=== PATIENT | male | born 1985 | race Caucasian/White ===

== ENCOUNTER 2021-07-03 21:33 | Emergency (ER) | payer OTHER ==
[~2021-07-03] VITALS: Ht 185.4 cm; Wt 90.7 kg
[2021-07-03 22:35] LABS: URINE BILIRUBIN NEGATIVE (Negative); URINE BLOOD 1+ (Negative); URINE CLARITY CLEAR; URINE COLOR YELLOW; URINE GLUCOSE-RANDOM NEGATIVE (Negative); URINE KETONES NEGATIVE (Negative); URINE LEUKOCYTES NEGATIVE (Negative); URINE NITRITE NEGATIVE (Negative); URINE PROTEIN NEGATIVE (Negative); URINE SPECIFIC GRAVITY >= 1.030 (1.005-1.030); URINE UROBILINOGEN 0.2 E.U./dl (0.2-1.0)
[2021-07-03 22:38] LABS: HEMATOCRIT 46.3 % (42.0-52.0); HEMOGLOBIN 15.8 gm/dL (14.0-18.0); MCH 31.2 pg (26.0-34.0); MCV 91.8 fL (80.0-100.0); MPV 7.6 fl. (7.2-11.1); RBC 5.05 mil/uL (4.50-6.00); RDW-CV 13.4 % (10.5-14.5); WBC 10.2 thou/uL (4.0-11.0)
[2021-07-03 22:41] LABS: AMP/METHAMP Negative (Negative); BARBITURATES Negative (Negative); BENZODIAZEPINES Negative (Negative); COCAINE Negative (Negative); METHADONE Negative (Negative); OPIATES Negative (Negative); PCP Negative (Negative); THC Negative (Negative)
[2021-07-03 22:46] LABS: CALCIUM 8.5 mg/dL (8.5-10.1); CREATININE 0.9 mg/dL (0.6-1.3); POTASSIUM 3.5 mmol/L (3.5-5.1)
[2021-07-03 22:51] LABS: ALBUMIN 3.6 g/dL (3.4-5.0); TOTAL BILIRUBIN 0.4 mg/dL (<0.1-1.0); TOTAL PROTEIN 6.8 g/dL (6.4-8.2)
[2021-07-03 23:01] LABS: SQUAMOUS NONE SEEN /LPF (0-3)
[2021-07-03 23:02] LABS: BACTERIA None Seen /HPF (None Seen); CASTS None Seen /LPF (None Seen); CRYSTALS None Seen /LPF (None Seen); URINE RBC 3-10 Few /HPF (0-2); URINE WBC 0-5 Rare /HPF (0-5)
[2021-07-03 23:05] LABS: ALCOHOL < 10 mg/dL (<10); SALICYLATE 4.2 mg/dL (2.8-20.0)
[2021-07-03 23:06] LABS: ACETAMINOPHEN < 2 ug/mL (10-30)
[2021-07-04 09:47] VITALS: BP 150/88
== END 2021-07-04 09:49 ==
LOC: M.ERS 21:33
PROVIDERS: Personal Emergency Response Attendant
DX: F10.10 Alcohol abuse, uncomplicated (principal); Z20.822 Contact with and (suspected) exposure to COVID-19; R45.851 Suicidal ideations; Y90.9 Presence of alcohol in blood, level not specified; F32.9 Major depressive disorder, single episode, unspecified; I10 Essential (primary) hypertension; F17.210 Nicotine dependence, cigarettes, uncomplicated